=== PATIENT | female | born 1955 | race Caucasian/White ===

== ENCOUNTER 2021-07-02 21:06 | Emergency (ER) | payer OTHER ==
[~2021-07-02] VITALS: Ht 170.2 cm; Wt 49.9 kg
[2021-07-02 22:02] VITALS: BP 126/75
[2021-07-02 23:05] VITALS: BP 121/72
== END 2021-07-03 01:01 | disposition home or self-care (01) ==
LOC: EDH 21:06
DX: J06.9 Acute upper respiratory infection, unspecified (principal); Z20.822 Contact with and (suspected) exposure to COVID-19